=== PATIENT | male | born 1995 | race Two or more races ===

== ENCOUNTER 2022-10-26 18:05 | Emergency (ER) | payer BC, MEDICAID ==
[~2022-10-26] VITALS: Ht 162.6 cm; Wt 72.6 kg
[2022-10-26 18:30] VITALS: BP 131/64; TEMP 98.5; O2SAT 99
== END 2022-10-26 21:25 | disposition home or self-care (01) ==
LOC: ER 18:14
DX: S00.83XA Contusion of other part of head, initial encounter (principal); V49.9XXA Car occupant (driver) (passenger) injured in unspecified traffic accident, initial encounter; Y93.89 Activity, other specified; Y92.89 Other specified places as the place of occurrence of the external cause; Y99.8 Other external cause status
CPT/HCPCS: 70450-TC